=== PATIENT | female | born 1935 | race Caucasian/White ===

== ENCOUNTER 2020-10-11 00:15 | Emergency (ER) | payer OTHER ==
[~2020-10-11] VITALS: Ht 152.4 cm; Wt 72.6 kg
--- NOTE | 2020-10-11 00:30 | NUR ---
MD Esteves in room to do MSE.
[2020-10-11] MEDS ORDERED: MECLIZINE HCL 25 MG TABLET PO ONE (00:45)
[2020-10-11] MEDS ORDERED: ONDANSETRON 4 MG/2 ML VIAL IV ONE (00:45)
[2020-10-11 00:47] LABS: HEMATOCRIT 44.5 % (31.2-41.9); MEAN CORPUSCULAR HEMOGLOBIN 30.7 uug (24.7-32.8); MEAN CORPUSCULAR VOLUME 92.6 fL (75.5-95.3); PLATELET COUNT (AUTO) 262 K/uL (179-408)
[2020-10-11] MEDS ORDERED: MECLIZINE HCL 25 MG TABLET ONE (00:55)
[2020-10-11] MEDS ORDERED: ONDANSETRON 4 MG/2 ML VIAL ONE (00:55)
[2020-10-11 00:56] LABS: BILIRUBIN,DIRECT 0.1 mg/dL (0.0-0.2); BILIRUBIN,TOTAL 0.2 mg/dL (0.2-1.0); CREATININE 1.2 mg/dL (0.6-1.3); POTASSIUM 4.4 mmol/L (3.5-5.1)
[2020-10-11 00:57] LABS: TOTAL PROTEIN, SERUM 7.6 g/dL (6.4-8.2)
[2020-10-11] MEDS ORDERED: IV NORMAL SALINE 1000 ML BAG IV ONE (02:00)
--- NOTE | 2020-10-11 02:40 | NUR ---
Patient resting on bed, with at bedside. No acute distress noted.
[2020-10-11] MEDS ORDERED: LORA-258 PO (03:14)
[2020-10-11] MEDS ORDERED: CLOM25CA2 PO (03:14)
[2020-10-11] MEDS ORDERED: ALLO100T PO (03:14)
[2020-10-11] MEDS ORDERED: ASPI81TA31 PO (03:14)
[2020-10-11] MEDS ORDERED: SIMV-46 PO (03:14)
[2020-10-11] MEDS ORDERED: LISI10TA29 PO (03:14)
[2020-10-11] MEDS ORDERED: OMEP20CA15 PO (03:14)
[2020-10-11] MEDS ORDERED: METO100T14 PO (03:14)
[2020-10-11] MEDS ORDERED: MECL-159 PO (03:20)
[2020-10-11] MEDS ORDERED: ONDA4TAB5 PO (03:20)
--- NOTE | 2020-10-11 03:40 | NUR ---
Patient discharged to home with in stable condition. Written and verbal after care instructions given. Patient verbalizes understanding of instructions. Stressed follow up or return to ER for worsening s/s. Patient ambulates with steady gait, V/S stable, Rx electronically sent by MD Esteves, and left with all personal belongings.
[2020-10-11 03:46] VITALS: BP 131/51
== END 2020-10-11 03:40 | disposition home or self-care (01) ==
LOC: ER 00:22
DX: H81.10 Benign paroxysmal vertigo, unspecified ear (principal); E86.0 Dehydration; I45.10 Unspecified right bundle-branch block; Z20.822 Contact with and (suspected) exposure to COVID-19; Z79.82 Long term (current) use of aspirin; F41.9 Anxiety disorder, unspecified; Z79.899 Other long term (current) drug therapy; Z82.49 Family history of ischemic heart disease and other diseases of the circulatory system; R03.0 Elevated blood-pressure reading, without diagnosis of hypertension
CPT/HCPCS: 36415; 70030-TC; 70450; 71045; 85025; 85730; 93005; A4663; J2405; J7030; J8597